=== PATIENT | female | born 1975 | race Caucasian/White ===

== ENCOUNTER 2020-02-22 10:04 | Emergency (ER) | payer SELFPAY ==
[~2020-02-22] VITALS: Ht 154.9 cm; Wt 70.3 kg
[2020-02-22 10:11] VITALS: Ht 154.9 cm; Wt 70.3 kg
[2020-02-22 10:35] VITALS: BP 134/82
== END 2020-02-22 10:35 | disposition home or self-care (01) ==
LOC: ED 10:04
DX: U07.1 COVID-19 (principal); R43.9 Unspecified disturbances of smell and taste
CPT/HCPCS: U0003-CS